=== PATIENT | female | born 1970 | race Caucasian/White ===

== ENCOUNTER → 2017-09-19 | Outpatient (CLI) | payer OTHER | END | disposition home or self-care (01) | LOC: CFH 08:12 | PROVIDERS: ATTEND Nurse Practitioner Family | DX: Z12.31 Encounter for screening mammogram for malignant neoplasm of breast (principal) | CPT/HCPCS: 77063; 77067 ==

== ENCOUNTER → 2018-06-24 | Outpatient (CLI) | payer OTHER | END | disposition home or self-care (01) | LOC: CFH 10:59 | PROVIDERS: ATTEND Nurse Practitioner Family | DX: R10.11 Right upper quadrant pain (principal) | CPT/HCPCS: 76700 ==

== ENCOUNTER → 2018-07-29 | Outpatient (CLI) | payer OTHER ==
[~2018-07-29] MED LIST: SINCALIDE (KINEVAC) 5 MCG ONE
== END | disposition home or self-care (01) ==
LOC: PETCFH 09:26
PROVIDERS: ATTEND Internal Medicine Gastroenterology
DX: R10.13 Epigastric pain (principal); R07.9 Chest pain, unspecified; K76.0 Fatty (change of) liver, not elsewhere classified; R14.0 Abdominal distension (gaseous); R11.0 Nausea
CPT/HCPCS: 78227; A9537; J2805

== ENCOUNTER 2018-09-17 12:20 | Outpatient (CLI) | payer OTHER ==
[2018-09-17] MEDS ORDERED: FLUT1BLS INH (12:45)
[2018-09-17] MEDS ORDERED: ALBU8.5H8 INH (12:45)
[2018-09-17] MEDS ORDERED: MONT10TA6 PO (12:45)
[2018-09-17] MEDS ORDERED: ASPI-691 PO (12:45)
[2018-09-17] MEDS ORDERED: LORA10TA75 PO (12:45)
[2018-09-17] MEDS ORDERED: FEXO180T72 PO (12:45)
== END 2018-09-17 23:59 | disposition home or self-care (01) ==
LOC: STAR 12:20
PROVIDERS: ATTEND Surgery Vascular Surgery
DX: Z02.9 Encounter for administrative examinations, unspecified (principal)

== ENCOUNTER 2018-09-21 09:08 | Day surgery (SDC) | payer OTHER ==
[2018-09-17 12:45] VITALS: BP 118/65
[~2018-09-21] VITALS: Ht 177.8 cm; Wt 89.6 kg
[~2018-09-21 09:08] MED LIST changes: +ALBU8.5H8 INH; +ASPI-691 PO; +FEXO180T72 PO; +FLUT1BLS INH; +LORA10TA75 PO; +MONT10TA6 PO; -SINCALIDE (KINEVAC) 5 MCG ONE
[2018-09-21] MEDS ORDERED: KETOROLAC 30 MG/1 ML IV PRN (09:30)
[2018-09-21] MEDS ORDERED: LORazepam 2 MG/ML, 1ML IVPush PRN (09:30)
[2018-09-21] MEDS ORDERED: PROMETHAZINE 25 MG/ML, 1ML IV PRN (09:30)
[2018-09-21] MEDS ORDERED: METOCLOPRAMIDE 5 MG/ML, 2ML IV PRN (09:30)
[2018-09-21] MEDS ORDERED: ACETAMINOPHEN 325 MG TABLET PO PRN (09:30)
[2018-09-21] MEDS ORDERED: HYDROmorphone 2 MG/ML, 1ML IVPush PRN (09:30)
[2018-09-21] MEDS ORDERED: MEPERIDINE/PF 25MG/0.5ML IVPush PRN (09:30)
[2018-09-21] MEDS ORDERED: LACTATED RINGERS 1,000 ML IV SCH (09:38)
[2018-09-21] MEDS ORDERED: BUPIVACAINE/EPI 0.5% 1:200K ONE (10:02)
[2018-09-21] MEDS ORDERED: FENTANYL PF 100 MCG/2ML ONE ×4 (11:47→13:15)
[2018-09-21] MEDS ORDERED: MIDAZOLAM 1 MG/ML, 2ML ONE (11:47)
[2018-09-21] MEDS ORDERED: NEOSTIGMINE 1 MG/ML, 10ML ONE (11:51)
[2018-09-21] MEDS ORDERED: PROPOFOL 10 MG/ML, 20ML ONE (11:51)
[2018-09-21] MEDS ORDERED: CEFAZOLIN 1,000 MG ONE (11:51)
[2018-09-21] MEDS ORDERED: SUCCINYLCHOLINE 20 MG/ML, 10ML ONE (11:51)
[2018-09-21] MEDS ORDERED: GLYCOPYRROLATE 0.2MG/1ML, 5ML ONE (11:51)
[2018-09-21] MEDS ORDERED: ONDANSETRON 2MG/ML, 2ML ONE ×2 (11:51→13:05)
[2018-09-21] MEDS ORDERED: ROCURONIUM 10MG/ML,5ML ONE (11:51)
[2018-09-21] MEDS ORDERED: DEXAMETHASONE 4 MG/ML, 1ML ONE (11:51)
[2018-09-21] MEDS ORDERED: OXYcodone 5 MG/5 ML ORAL.SOL UDC ONE ×2 (12:42→13:16)
[2018-09-21] MEDS: FENTANYL PF 100 MCG/2ML IV PRN ×5 (12:43→13:30)
[2018-09-21] MEDS: OXYcodone 5 MG/5 ML ORAL.SOL UDC PO PRN ×2 (12:46→14:43)
[2018-09-21] MEDS ORDERED: ONDANSETRON 2MG/ML, 2ML IVPush PRN (13:30)
== END 2018-09-21 15:55 | disposition home or self-care (01) ==
LOC: OUT 09:08
PROVIDERS: ATTEND Surgery Vascular Surgery
DX: K82.8 Other specified diseases of gallbladder (principal); J45.909 Unspecified asthma, uncomplicated; E78.00 Pure hypercholesterolemia, unspecified; Z98.890 Other specified postprocedural states; Z88.1 Allergy status to other antibiotic agents; Z72.89 Other problems related to lifestyle
CPT/HCPCS: 47562; 81025; 88304; C1729; J0330; J0690; J1100; J2250; J2405; J2704; J2710; J3010; J3490; J7120

== ENCOUNTER → 2018-10-05 | Outpatient (CLI) | payer OTHER | END | disposition home or self-care (01) | LOC: CFH 08:40 | PROVIDERS: ATTEND Nurse Practitioner Family | DX: Z12.31 Encounter for screening mammogram for malignant neoplasm of breast (principal); Z88.1 Allergy status to other antibiotic agents | CPT/HCPCS: 77063; 77067 ==

== ENCOUNTER → 2018-10-19 | Outpatient (CLI) | payer OTHER | END | disposition home or self-care (01) | LOC: CFH 12:24 | PROVIDERS: ATTEND Nurse Practitioner Family | DX: N63.21 Unspecified lump in the left breast, upper outer quadrant (principal) | CPT/HCPCS: 77065 ==

== ENCOUNTER → 2018-10-29 | Outpatient (CLI) | payer OTHER ==
[~2018-10-29] MED LIST changes: +LIDOCAINE 1%, 20ML ONE; +LIDOCAINE 1%-EPI 1:100K, 20ML ONE; +SODIUM BICARBONATE 4.2%, 5ML ONE
== END | disposition home or self-care (01) ==
LOC: CFH 09:50
PROVIDERS: ATTEND Nurse Practitioner Family
DX: N60.22 Fibroadenosis of left breast (principal)
CPT/HCPCS: 19083; 88305; 88341; 88342; J3490